=== PATIENT | female | born 1955 | race Two or more races ===

== ENCOUNTER → 2017-09-12 | Emergency (ER) | payer OTHER ==
[~2017-09-12] VITALS: Ht 162.6 cm; Wt 81.6 kg
[~2017-09-12] MED LIST: DETROL LA2 MG
== END | disposition home or self-care (01) ==
LOC: ER 18:19
DX: R42 Dizziness and giddiness (principal)

== ENCOUNTER 2018-05-20 16:32 | Inpatient (IN) | payer OTHER ==
[~2018-05-20] VITALS: Ht 162.6 cm; Wt 79.4 kg
[2018-05-20] MEDS ORDERED: NEURONTIN300 MG (17:00)
== END 2018-05-24 11:55 | disposition home or self-care (01) | DRG 392 ==
LOC: ER 16:32 → SURH 05-21 08:43 → SEC-K 05-21 08:43 → SURH 05-21 10:25
DX: K58.0 Irritable bowel syndrome with diarrhea (principal); I67.1 Cerebral aneurysm, nonruptured; G60.8 Other hereditary and idiopathic neuropathies; M17.12 Unilateral primary osteoarthritis, left knee

== ENCOUNTER 2018-05-29 08:30 | Inpatient (IN) | payer OTHER ==
[~2018-05-29] VITALS: Ht 162.6 cm; Wt 80.7 kg
[~2018-05-29 08:30] MED LIST changes: +NEURONTIN300 MG
[2018-05-29] MEDS ORDERED: GABAPENT PO (09:57)
[2018-06-05] MEDS ORDERED: NEURONTIN300 MG PO (09:44)
[2018-06-07] MEDS ORDERED: PERCOCET 5-3251 EACH PO (18:09)
[2018-06-07] MEDS ORDERED: DUI500 PO (18:09)
[2018-06-07] MEDS ORDERED: ELIQUIS2.5 MG PO (18:09)
== END 2018-06-07 19:37 | DRG 470 ==
LOC: SURH 06-05 05:40 → O/R 06-05 05:40 → SURH 06-05 08:30
PROVIDERS: Orthopaedic Surgery
PROC: 0MNP0ZZ Release Left Knee Bursa and Ligament, Open Approach (ICD-10-PCS; 2018-06-05)
PROC: 0SRD0J9 Replacement of Left Knee Joint with Synthetic Substitute, Cemented, Open Approach (ICD-10-PCS; principal; 2018-06-05 13:00)
DX: M17.12 Unilateral primary osteoarthritis, left knee (principal); M81.0 Age-related osteoporosis without current pathological fracture

== ENCOUNTER 2018-09-27 10:32 | Emergency (ER) | payer OTHER ==
[~2018-09-27] VITALS: Ht 157.5 cm; Wt 77.1 kg
[~2018-09-27 10:32] MED LIST changes: +DUI500 PO; +ELIQUIS2.5 MG PO; +GABAPENT PO; +NEURONTIN300 MG PO; +PERCOCET 5-3251 EACH PO
[2018-09-27] MEDS ORDERED: HORIZANT300 MG (10:55)
== END 2018-09-27 22:16 | disposition home or self-care (01) ==
LOC: ER 10:32
DX: R00.2 Palpitations (principal); R51 Headache

== ENCOUNTER 2020-03-13 07:13 | Day surgery (SDC) | payer OTHER ==
[~2020-03-13 07:13] MED LIST changes: +BUSPAR; +HORIZANT300 MG; +SERTRALINE20 MG/1 ML PO; +SYNTHROID50 MCG PO
== END 2020-03-13 18:30 | disposition home or self-care (01) ==
LOC: CIR.AMB 07:13
PROVIDERS: ATTEND Surgery
DX: D24.1 Benign neoplasm of right breast (principal); Z20.828 Contact with and (suspected) exposure to other viral communicable diseases

== ENCOUNTER 2022-11-01 07:58 | Outpatient (CLI) | payer OTHER | END 2022-11-01 08:17 | disposition home or self-care (01) | LOC: SONOGRAMA 07:58 | PROVIDERS: ATTEND Physical Medicine & Rehabilitation | DX: M25.512 Pain in left shoulder (principal); S46.802A Unspecified injury of other muscles, fascia and tendons at shoulder and upper arm level, left arm, initial encounter ==

== ENCOUNTER 2023-09-25 07:40 | Outpatient (CLI) | payer OTHER | END 2023-09-25 07:41 | disposition home or self-care (01) | LOC: NUCLEAR 07:40 | PROVIDERS: ATTEND Specialist | DX: I11.9 Hypertensive heart disease without heart failure (principal); I25.9 Chronic ischemic heart disease, unspecified | CPT/HCPCS: 78452; 93017; A9500 ==

== ENCOUNTER 2024-12-09 10:19 | Outpatient (CLI) | payer OTHER | END 2024-12-09 10:20 | disposition home or self-care (01) | LOC: NUCLEAR 10:19 | DX: M81.8 Other osteoporosis without current pathological fracture (principal); M81.0 Age-related osteoporosis without current pathological fracture ==